=== PATIENT | female | born 1955 | race Caucasian/White ===

== ENCOUNTER → 2016-06-23 | Outpatient (CLI) | payer OTHER ==
[~2016-06-23] MED LIST: AMOX-358 PO; CITA40TA11 PO; HYDR-757 PO; LEVO88TA54 PO
--- NOTE | 2016-06-23 15:01 | Diagnostic Imaging Report ---
INDICATION: Cough and congestion. PA and lateral views of the chest are obtained with comparison made to study of 10/07/2015. FINDINGS: Heart size and pulmonary vascularity are within normal limits, and the lungs are clear, bilaterally. IMPRESSION: Unremarkable chest. Dictated by: Dictated on workstation # [id number]
== END ==
LOC: RAD 14:41
PROVIDERS: ATTEND Nurse Practitioner Family
DX: J44.9 Chronic obstructive pulmonary disease, unspecified (principal); R91.1 Solitary pulmonary nodule; F17.200 Nicotine dependence, unspecified, uncomplicated
CPT/HCPCS: 71020

== ENCOUNTER 2016-07-02 05:52 | Outpatient (CLI) | payer SELFPAY ==
[~2016-07-02] VITALS: Ht 167.6 cm; Wt 54.4 kg
== END 2016-07-02 14:45 ==
LOC: PREOP 05:52
PROVIDERS: ATTEND Surgery
DX: Z01.818 Encounter for other preprocedural examination (principal); Z12.11 Encounter for screening for malignant neoplasm of colon

== ENCOUNTER 2016-07-07 07:11 | Day surgery (SDC) | payer OTHER ==
[~2016-07-07] VITALS: Ht 167.6 cm; Wt 54.4 kg
[~2016-07-07 07:11] MED LIST changes: +MIDAZOLAM 2 MG/2 ML (VERSED) VIAL ONE; +NS IV 1000 ML 1,000 ML ONE; +PROPOFOL INJECTION 50 ML IV ONE
[2016-07-07] MEDS ORDERED: fentaNYL INJECTION 100 MCG/2 ML AMP ONE (07:29)
[2016-07-07] MEDS ORDERED: LACTATED RINGERS 1,000 ML IV PRN (07:37)
[2016-07-07] MEDS ORDERED: NS IV 1000 ML 1,000 ML IV STA (07:41)
[2016-07-07 07:44] VITALS: BP 103/70
[2016-07-07] MEDS ORDERED: fentaNYL INJECTION 100 MCG/2 ML AMP IVP PRN (07:45)
[2016-07-07] MEDS ORDERED: NALOXONE 0.4 MG/ML 1 ML (NARCAN) VIAL IVP PRN (07:45)
[2016-07-07] MEDS ORDERED: FLUMAZENIL (ROMAZICON) 0.1 MG/ML 5 ML VIAL INJ PRN (07:45)
[2016-07-07] MEDS ORDERED: fentaNYL INJECTION 100 MCG/2 ML AMP IV ONE (07:45)
--- NOTE | 2016-07-07 07:50 | Progress Note-Pre Operative ---
Pre-Operative Progress Note H&P Reviewed The H&P was reviewed, patient examined and no changes noted. Date H&P Reviewed: Jul 07, 2016 Time H&P Reviewed: 07:45 Pre-Operative Diagnosis: screening colonoscopy MILAGRO COX DO Jul 07, 2016 7:50 am
[2016-07-07] MEDS ORDERED: GLYCOPYRROLATE 0.2 MG/ML (ROBINUL) 2 ML VIAL ONE (07:53)
--- NOTE | 2016-07-07 08:19 | Progress Note-Post Operative ---
Post-Operative Progess Note Pre-Operative Diagnosis screening colonoscopy Post-Operative Diagnosis colon polys Post-Op Procedure Note Date of Procedure: Jul 07, 2016 Name of Procedure: colonoscopy c hot bx polypectomy x 4 Procedure Note/Findings see note Anesthesia Type per rn referral Estimated blood loss (mL): none Specimen(s) collected polyps cecal, sigmoid, rectumx 2 MILAGRO COX DO Jul 07, 2016 8:19 am
--- NOTE | 2016-07-07 08:20 | Discharge Inst-Simple/Standard ---
Discharge Inst-Standard Patient Instructions/Follow Up Plan of Care/Instructions/FU: 2 weeks Netta Activity as Tolerated: Yes Discharge Diet: Regular Diet MILAGRO COX DO Jul 07, 2016 8:20 am
[2016-07-07 08:35] VITALS: BP 91/71
[2016-07-07 09:30] VITALS: BP 85/64
[2016-07-07 10:00] VITALS: BP 85/64
--- NOTE | 2016-07-07 10:11 | OPERATIVE REPORT ---
PROCEDURE PHYSICIAN: MILAGRO COX DATE OF PROCEDURE: 07/07/2016 PREOPERATIVE DIAGNOSIS: Screening colonoscopy. POSTOPERATIVE DIAGNOSIS: Colon polyps PROCEDURE: Colonoscopy with hot biopsy polypectomy x 4 SURGEON: Netta. ANESTHESIA: Per [employer]. ESTIMATED BLOOD LOSS: None. COMPLICATIONS: None. INDICATIONS: The patient is a 61-year-old female who has not had screening colonoscopy. She understands risks and benefits of the procedure and wished to proceed with procedure. Consent signed on the chart. PROCEDURE: The patient was taken endoscopy suite, placed in left lateral recumbent position. Timeout was performed. Digital rectal exam was performed. There were no palpable polyps, masses, ulcerations. The scope was inserted in the rectum advanced all of the way to the cecum with minimal difficulty. At the rim of the cecum there is a small polyp, which hot biopsy polypectomy was performed. The scope was then slowly retracted back. Prep was adequate. The scope was then slowly retracted back. There are no polyps, masses or ulcerations within the ascending colon and transverse colon and descending colon. Within the sigmoid colon, a small polyp was present which hot biopsy polypectomy was performed. The scope was continued to be slowly back in the rectum, 2 small polyps were present, which hot biopsy polypectomy was performed. The scope was also retroflexed noting no further pathology. The scope was returned to its normal position slowly withdrawn until completely removed. The patient tolerated the procedure well without any complications. She was taken to recovery room in stable condition. RECOMMENDATIONS: The patient will need repeat colonoscopy in 3 to 5 years. If she has any problems prior to that, she should be reevaluated at that time. She will follow-up in the office in 2 weeks to discuss pathology results. Job ID: [id number] Dictated Date: 07/07/2016 08:27:23 Aquatics Instructor Date: 07/07/2016 10:05:23 / franky
== END 2016-07-07 09:35 | disposition home or self-care (01) ==
LOC: SDC 07:11
PROVIDERS: ATTEND Surgery
DX: Z12.11 Encounter for screening for malignant neoplasm of colon (principal); K63.5 Polyp of colon; J44.9 Chronic obstructive pulmonary disease, unspecified; F17.210 Nicotine dependence, cigarettes, uncomplicated; E03.9 Hypothyroidism, unspecified; F32.9 Major depressive disorder, single episode, unspecified; F41.9 Anxiety disorder, unspecified

== ENCOUNTER → 2016-10-20 | Outpatient (CLI) | payer OTHER ==
[~2016-10-20] MED LIST changes: -MIDAZOLAM 2 MG/2 ML (VERSED) VIAL ONE; -NS IV 1000 ML 1,000 ML ONE; -PROPOFOL INJECTION 50 ML IV ONE
--- NOTE | 2016-10-20 13:35 | Diagnostic Imaging Report ---
EXAMINATION: Left breast ultrasound. INDICATION: Followup left breast lesion at the 10 o'clock zone. FINDINGS: The 10 o'clock zone area and surrounding region were scanned in the left breast with no underlying abnormality seen. The previously seen lesion has resolved. IMPRESSION: The previously seen hypoechoic lesion at the 10 o'clock zone has resolved. No suspicious abnormality. Annual screening mammogram is recommended. ACR BI-RADS Category 1: Negative. Dictated by: Dictated on workstation # [id number]
== END ==
LOC: RAD 10:57
PROVIDERS: ATTEND Nurse Practitioner Family
DX: R92.8 Other abnormal and inconclusive findings on diagnostic imaging of breast (principal)
CPT/HCPCS: 76642

== ENCOUNTER → 2017-09-24 | Outpatient (CLI) | payer OTHER ==
--- NOTE | 2017-09-27 10:16 | Diagnostic Imaging Report ---
INDICATION: Routine screening. COMPARISON: 06/10/2016 and 07/21/2013. TECHNIQUE: Screening digital mammography was performed bilaterally with a Computer Aided Detection (CAD) system. FINDINGS: Both breasts are heterogeneously dense, limiting sensitivity of mammography. The previously noted density in the medial posterior left breast is stable. There are benign-appearing calcifications bilaterally. Benign-appearing nodular densities are identified bilaterally. No spiculated mass or malignant appearing microcalcifications are seen. The axillae are unremarkable. IMPRESSION: No mammographic features suspicious for malignancy are identified. ACR BI-RADS Category 2: Benign findings. Result letter will be mailed to the patient. Note: At least 10% of breast cancer is not imaged by mammography. Dictated by: Dictated on workstation # [id number]
== END ==
LOC: RAD 12:16
PROVIDERS: ATTEND Physician Assistant
DX: Z12.31 Encounter for screening mammogram for malignant neoplasm of breast (principal)
CPT/HCPCS: 77067

== ENCOUNTER → 2017-09-24 | Outpatient (CLI) | payer SELFPAY ==
--- NOTE | 2017-09-24 17:01 | Diagnostic Imaging Report ---
INDICATION: 42 pack year history of smoking. COMPARISON: 09/28/2015 TECHNIQUE: Routine noncontrast low-dose CT of the chest was performed. FINDINGS: Evaluation of the lung willett demonstrates collection of groundglass densities within the left upper lobe measuring approximately 7 mm (images 146 through 156, series 4). These are new when compared to prior exam. Solid 5 mm micronodule is also noted within the lateral segment of the right middle lobe (image 204, series 4). This is stable compared to 09/28/2015. There is moderate diffuse air trapping consistent with background of emphysematous disease. No focal consolidation, pleural effusion, nor pneumothorax is seen on either side. Cardiomediastinal structures show normal heart size. There is no large pericardial effusion. Mild hiatal hernia is noted. There is mild to moderate calcified coronary atherosclerosis. There is also some mild scattered calcified aortic atherosclerosis. A few subcentimeter mediastinal lymph nodes are noted. No pathologically enlarged mediastinal, hilar, nor axillary adenopathy is identified. Bony structures show no acute abnormalities. No lytic or blastic bony lesions are identified. Included portions of the upper abdomen are unremarkable. IMPRESSION: 1. Interval development of ill-defined groundglass micronodular densities within the left upper lobe as described above. 2. Stable 5 mm micronodule within the right middle lobe. 3. Mild to moderate calcified coronary atherosclerosis. 4. Moderate emphysematous disease. LungRads category: 4A-S RECOMMENDATIONS: Three-month followup is recommended. MODIFIERS: Emphysematous disease and calcified coronary atherosclerosis. Dictated by: Dictated on workstation # [id number]
== END ==
LOC: RAD 12:23
PROVIDERS: ATTEND Physician Assistant
DX: I25.10 Atherosclerotic heart disease of native coronary artery without angina pectoris (principal); R91.8 Other nonspecific abnormal finding of lung field; J43.9 Emphysema, unspecified; F17.210 Nicotine dependence, cigarettes, uncomplicated

== ENCOUNTER → 2019-11-22 | Outpatient (CLI) | payer MEDICARE, MEDICAID ==
[~2019-11-22] MED LIST changes: +HYDR-4226 PO; -HYDR-757 PO
--- NOTE | 2019-11-22 14:45 | Diagnostic Imaging Report ---
INDICATION: Low back pain increasing over the last 2 months. TIME OF EXAM: 2:29 PM. TECHNIQUE: Frontal and lateral views of the lumbar spine were obtained. FINDINGS: There is an S-shaped scoliotic curvature to the lumbar spine, convex to the left in the upper portion and convex to the right in the lower portion. The vertebral body heights appear to be maintained. No acute compression fracture is seen. There is generalized degenerative disc and facet disease. Variable disc space narrowing is noted. The aorta is partially calcified. IMPRESSION: Lumbar spondylosis and scoliosis. No acute bony abnormality is detected. Dictated by: Dictated on workstation # [id number]
--- NOTE | 2019-11-22 14:51 | Diagnostic Imaging Report ---
INDICATION: Bilateral hip pain and popping. TIME OF EXAM: 02:25 p.m. EXAMINATION: Frontal view of the pelvis as well as multiple views of bilateral hips were obtained. FINDINGS: A femoral acetabular alignment is normal bilaterally. Hip joint spaces are fairly well maintained. Femoral heads and necks are intact. No fractures are seen. Rami are unremarkable. IMPRESSION: No acute bony abnormality is detected. Dictated by: Dictated on workstation # [id number]
== END ==
LOC: RAD FS 14:13
PROVIDERS: ATTEND Nurse Practitioner Family
DX: M47.816 Spondylosis without myelopathy or radiculopathy, lumbar region (principal); M41.86 Other forms of scoliosis, lumbar region; M25.551 Pain in right hip; M25.552 Pain in left hip
CPT/HCPCS: 72100; 73521

== ENCOUNTER → 2019-12-18 | Outpatient (CLI) | payer MEDICARE, MEDICAID ==
--- NOTE | 2019-12-18 18:20 | Diagnostic Imaging Report ---
CT Lung Screening INDICATION: Screening for lung cancer, 43 pack year history of smoking, quit smoking 8 months prior. TECHNIQUE: Noncontrast, low-dose CT imaging performed according to the lung cancer screening protocol. Auto Exposure Controls were utilize during the CT exam to meet ALARA standards for radiation dose reduction. COMPARISON: 09/24/2017 and 09/28/2015 FINDINGS: No significant adenopathy within the chest. Mild scattered vascular calcifications. No aneurysmal dilatation of the thoracic aorta. The heart is within normal limits in size. No significant pericardial effusion. No pleural effusion. Severe background emphysematous changes are again noted, particularly centrilobular in nature with an upper lobe predilection. Biapical pleural parenchymal scarring. Previously noted left upper lobe groundglass opacities have resolved since the prior examination. No new left-sided pulmonary nodules. There is a 2 mm right lower lobe pulmonary nodule, unchanged and benign. A 5 mm right middle lobe pulmonary nodule is again identified and stable, therefore, benign. No new pulmonary nodule or opacity. The trachea is patent. A 3.5 x 3.0 cm hypodensity within the portacaval location is again identified, not significantly changed since 2016. The visualized upper abdomen is otherwise unremarkable. Mild apex right curvature of the spine. Scattered osseous degenerative changes without acute osseous abnormality. IMPRESSION: 1. Advanced background emphysematous changes without suspicious pulmonary nodules. 2. Subcentimeter bilateral pulmonary nodules are again identified and stable, therefore, benign. 3. Additional stable findings, as above. LUNG-RADS CATEGORY:2S: Benign appearance or behavior. MODIFIER:S: Advanced background emphysematous changes. FOLLOW-UP: Continued annual low-dose CT of the chest in 12 months. Dictated by: Dictated on workstation # [id number]
== END ==
LOC: RAD 16:02
PROVIDERS: ATTEND Nurse Practitioner Family
DX: J43.9 Emphysema, unspecified (principal); R91.8 Other nonspecific abnormal finding of lung field; Z87.891 Personal history of nicotine dependence

== ENCOUNTER → 2020-02-09 | Outpatient (CLI) | payer MEDICARE, MEDICAID ==
--- NOTE | 2020-02-09 14:55 | Diagnostic Imaging Report ---
PROCEDURE: MRI lumbar spine. TECHNIQUE: Multiplanar, multisequence MRI of the lumbar spine was performed without contrast. INDICATION: Lower back pain. COMPARISON: None FINDINGS: For the purposes of this exam, last well-formed disc space is noted at the L5-S1 level. Evaluation of static alignment shows moderate levoscoliotic deformity at the thoracolumbar junction. AP static alignment is maintained. There is no significant anteroretrolisthesis. There is no evidence of jumped facets. Vertebral body heights are maintained. There is no acute fracture. Evaluation marrow signal demonstrates scattered Modic type I change involving the adjacent endplates of L1-L2 on the right and L4-L5 on the left. There is also mild multilevel intervertebral disc height loss. Visualized portions of distal cord are unremarkable. Conus terminates at approximately the L1-L2 level. No abnormal intrathecal filling defects are seen. Pre and paravertebral soft tissue structures are unremarkable. Axial images demonstrate the following: T12-L1: There is slight broad-based posterior disc bulge, but this results in only minimal narrowing of the spinal canal. Neural foramen are unremarkable. L1-L2: There is mild broad-based posterior disc bulge, eccentric to the right as well as mild bilateral ligamentum flavum laxity and facet arthropathy. As a result, there is moderate stenosis of the right neuroforamen and mild narrowing of the spinal canal. Left neuroforamen is unremarkable L2-L3: There is mild broad-based posterior disc bulge and bilateral ligamentum flavum laxity and facet arthropathy. As result, there is minimal narrowing of the spinal canal and bilateral neural foramen. L3-L4: There is no large disc bulge or focal protrusion. There is no significant spinal canal or neuroforaminal stenosis. L4-L5: There is asymmetric left lateral endplate osteophyte formation. This results in asymmetric stenosis of the left lateral recess and asymmetric moderate narrowing of the left neural foramen. Spinal canal and right neuroforamen are unremarkable. L5-S1: There are small bilateral lateral endplate osteophyte formations. This results in mild narrowing of bilateral neural foramen. There is no significant spinal canal stenosis. IMPRESSION: 1. 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 2. No acute fracture or dislocation. Dictated by: Dictated on workstation # [id number]
== END ==
LOC: RAD 14:00
PROVIDERS: ATTEND Physician Assistant
DX: M25.78 Osteophyte, vertebrae (principal); M48.07 Spinal stenosis, lumbosacral region; M47.816 Spondylosis without myelopathy or radiculopathy, lumbar region; M51.26 Other intervertebral disc displacement, lumbar region; M51.25 Other intervertebral disc displacement, thoracolumbar region; M51.36 Other intervertebral disc degeneration, lumbar region; M41.86 Other forms of scoliosis, lumbar region
CPT/HCPCS: 72148

== ENCOUNTER → 2021-01-15 | Outpatient (CLI) | payer MEDICARE, MEDICAID ==
--- NOTE | 2021-01-15 16:56 | Diagnostic Imaging Report ---
INDICATION: Cough PA and lateral chest obtained at 4:52 p.m. and compared to 06/23/2016. Heart and mediastinal silhouette are normal in appearance. There is hyperinflation compatible with COPD. There is some mild patchy infiltrate in the right lung base, early pneumonia not excluded. IMPRESSION: COPD changes and chronic interstitial prominence. Minimal infiltrate in right lung base, early pneumonia not excluded. Suggest followup as clinically warranted. Dictated by: Dictated on workstation # [id number]
== END ==
LOC: RAD FS 16:38
PROVIDERS: ATTEND Nurse Practitioner Family
DX: J44.9 Chronic obstructive pulmonary disease, unspecified (principal)
CPT/HCPCS: 71046

== ENCOUNTER 2021-01-22 14:09 | Emergency (ER) | payer MEDICARE, MEDICAID ==
[~2021-01-22] VITALS: Ht 170 cm; Wt 46.0 kg
[2021-01-22] MEDS ORDERED: ONDANSETRON 4 MG/2 ML (SDV) Z0FRAN IVP STA (14:25)
[2021-01-22] MEDS ORDERED: NS IV 1000 ML 1,000 ML IV STA (14:25)
--- NOTE | 2021-01-22 14:33 | ED General ---
General Chief Complaint: General Problems/Pain Stated Complaint: GENERAL WEAKNESS Source of Information: Patient History of Present Illness Date Seen by Provider: Jan 22, 2021 Time Seen by Provider: 14:11 Initial Comments 65-year-old female with a history of COPD presents pneumonia. She states that she finished her antibiotics yesterday. She was checking back with Anu Duggan today and was sent to the ER because of general weakness. She has been complaints of not feeling well, generally weak, continued cough and shortness of breath, nausea but no vomiting. She denies any pain. She has had no diarrhea o r change in bowels. She denies having a fever. She has not been having any burning or pain with urination. She states that she is bringing up a little bit of phlegm with cough but no more than usual. She reports being tested for Covid and having it be negative last week when evaluated for pneumonia. She is a former smoker but does nto smoke now. Associated Systoms: No Chest Pain; Cough; No Diaphoresis, No Fever/Chills; Loss of Appetite, Malaise, Nausea/Vomiting (nausea but no vomiting); No Seizure; Shortness of Air; No Syncope; Weakness (general) Allergies and Home Medications Allergies Coded Allergies: codeine (Verified Allergy, Unknown, 07/02/16) Home Medications Citalopram Hydrobromide 40 Mg Tablet, 1 TAB PO DAILY, (Reported) Levothyroxine Sodium 88 Mcg Tablet, 1 TAB PO DAILY, (Reported) Patient Home Medication List Home Medication List Reviewed: Yes Review of Systems Review of Systems Constitutional: see HPI EENTM: no symptoms reported Respiratory: see HPI Cardiovascular: no symptoms reported Gastrointestinal: see HPI Genitourinary: no symptoms reported Musculoskeletal: no symptoms reported Skin: No rash Psychiatric/Neurological: Anxiety Past Ksanozo-Ioyiol-Kwedly Hx Immunizations Up To Date Tetanus Booster (TDap): Unknown Seasonal Allergies Seasonal Allergies: Yes Past Medical History Surgeries: Yes Gallbladder, Hysterectomy, Tubal Ligation Respiratory: Yes COPD Reproductive Disorders: No Female Reproductive Disorders: Denies [employer] History: Hysterectomy Sexually Transmitted Disease: No HIV/AIDS: No Gastrointestinal: Yes Chronic Constipation, Chronic Diarrhea Musculoskeletal: Yes Chronic Back Pain Endocrine: Yes Hypothyroidsim Loss of Vision: Bilateral Hearing Impairment: Denies Anxiety, Depression Adverse Reaction/Blood Tranf: No Physical Exam Vital Signs Vital Signs - First Documented 01/22/21 14:12 Temp 36.1 Pulse 97 Resp 20 B/P (MAP) 138/96 (110) Pulse Ox 96 O2 Delivery Room Air Capillary Refill : Height, Weight, BMI Height: 5'6.00" Weight: 120lbs. 0.0oz. 54.623387fv; 19.4 BMI Method:Stated General Appearance: Chronically ill, Thin HEENT: PERRL/EOMI Neck: Full Range of Motion, Normal Inspection, Non Tender, Supple Respiratory: Chest Non Tender, Lungs Clear, No Accessory Muscle Use, No Respiratory Distress, Decreased Breath Sounds Cardiovascular: Regular Rate, Rhythm, Normal Peripheral Pulses Gastrointestinal: Normal Bowel Sounds, No Pulsatile Mass, Non Tender, Soft Rectal: Deferred Extremity: Normal Capillary Refill, Normal Inspection, No Pedal Edema Neurologic/Psychiatric: Alert, Oriented x3, field gauger II-XII Norm as Tested Skin: Normal Color, Warm/Dry Progress/Results/Core Measures Suspected Sepsis SIRS Temperature: Pulse: Respiratory Rate: Laboratory Tests 01/22/21 14:18: White Blood Count 6.6 Blood Pressure / Mean: Laboratory Tests 01/22/21 14:18: Creatinine 0.69, Platelet Count 207, Total Bilirubin 0.4 Results/Orders Lab Results Laboratory Tests Test 01/22/21 14:15 01/22/21 14:18 Range/Units Urine Color YELLOW Urine Clarity CLEAR Urine pH 5.5 5-9 Urine Specific Miller 1.025 H 1.016-1.022 Urine Protein NEGATIVE NEGATIVE Urine Glucose (UA) NEGATIVE NEGATIVE Urine Ketones NEGATIVE NEGATIVE Urine Nitrite NEGATIVE NEGATIVE Urine Bilirubin NEGATIVE NEGATIVE Urine Urobilinogen 0.2 < = 1.0 MG/DL Urine Leukocyte Esterase NEGATIVE NEGATIVE Urine RBC (Auto) NEGATIVE NEGATIVE Urine RBC NONE /HPF Urine WBC 0-2 /HPF Urine Squamous Epithelial Cells 2-5 /HPF Urine Crystals NONE /LPF Urine Bacteria TRACE /HPF Urine Casts NONE /LPF Urine Mucus SMALL H /LPF Urine Culture Indicated YES White Blood Count 6.6 4.3-11.0 10^3/uL Red Blood Count 5.72 4.35-5.85 10^6/uL Hemoglobin 16.2 H 11.5-16.0 G/DL Hematocrit 50 35-52 % Mean Corpuscular Volume 87 80-99 FL Mean Corpuscular Hemoglobin 28 25-34 PG Mean Corpuscular Hemoglobin Concent 33 32-36 G/DL Red Cell Distribution Width 14.0 10.0-14.5 % Platelet Count 207 130-400 10^3/uL Mean Platelet Volume 11.8 H 7.4-10.4 FL Immature Granulocyte % (Auto) 2 % Neutrophils (%) (Auto) 59 42-75 % Lymphocytes (%) (Auto) 24 12-44 % Monocytes (%) (Auto) 15 H 0-12 % Eosinophils (%) (Auto) 0 0-10 % Basophils (%) (Auto) 1 0-10 % Neutrophils # (Auto) 3.9 1.8-7.8 X 10^3 Lymphocytes # (Auto) 1.6 1.0-4.0 X 10^3 Monocytes # (Auto) 1.0 0.0-1.0 X 10^3 Eosinophils # (Auto) 0.0 0.0-0.3 10^3/uL Basophils # (Auto) 0.0 0.0-0.1 10^3/uL Immature Granulocyte # (Auto) 0.1 0.0-0.1 10^3/uL Sodium Level 144 135-145 MMOL/L Potassium Level 3.7 3.6-5.0 MMOL/L Chloride Level 106 98-107 MMOL/L Carbon Dioxide Level 25 21-32 MMOL/L Anion Gap 13 5-14 MMOL/L Blood Urea Nitrogen 28 H 7-18 MG/DL Creatinine 0.69 0.60-1.30 MG/DL Estimat Glomerular Filtration Rate 86 BUN/Creatinine Ratio 41 Glucose Level 128 H 70-105 MG/DL Calcium Level 9.5 8.5-10.1 MG/DL Corrected Calcium 9.8 8.5-10.1 MG/DL Total Bilirubin 0.4 0.1-1.0 MG/DL Aspartate Amino Transf (AST/SGOT) 21 5-34 U/L Alanine Aminotransferase (ALT/SGPT) 20 0-55 U/L Alkaline Phosphatase 96 40-136 U/L Troponin I < 0.30 <0.30 NG/ML Pro-B-Type Natriuretic Peptide 123.9 H <75.0 PG/ML Total Protein 6.9 6.4-8.2 GM/DL Albumin 3.6 3.2-4.5 GM/DL My Orders Orders - PADMINI WEN MD Comprehensive Metabolic Panel (01/22/21 14:15) Ua Culture If Indicated (01/22/21 14:15) Ed Iv/Invasive Line Start (01/22/21 14:15) Cbc With Automated Diff (01/22/21 14:15) Ekg Tracing (01/22/21 14:24) Monitor-Rhythm Ecg Trace Only (01/22/21 14:24) Troponin I Fs (01/22/21 14:24) Probnp Fs (01/22/21 14:24) Sputum Culture (01/22/21 14:24) Ns Iv 1000 Ml (Sodium Chloride 0.9%) (01/22/21 14:25) Ondansetron Injection (Zofran Injectio (01/22/21 14:25) Chest Pa/Lat (2 View) (01/22/21 14:26) Urine Culture (01/22/21 14:15) Vital Signs/I&O 01/22/21 01/22/21 14:12 15:42 Temp 36.1 36.1 Pulse 97 82 Resp 20 16 B/P (MAP) 138/96 (110) 129/82 (110) Pulse Ox 96 96 O2 Delivery Room Air Room Air Capillary Refill : Progress Note #1: Progress Note With vague complaints and having COPD and recent pneumonia will check 2 view CXR, labs, cardiac enzymes, UA. Give IVF for hydration, Zofran for nausea. Progress Note #2: Progress Note Labs are stable without signs of acute significant normality. She does have an elevated specific gravity on urinalysis indicates some dehydration. Her chest x-ray is showing improving signs of pneumonia. Her last film was done on January 15 so it has only been a few days. Encourage fluids and hydration. Check with clinic for continued concerns and return or seek medical care for worsening symptoms. ECG Initial ECG Impression Date: Jan 22, 2021 Initial ECG Impression Time: 14:25 Initial ECG Rate: 85 Initial ECG Rhythm: Normal Sinus Initial ECG Comparisson: No Previous ECG Available Comment Normal sinus rhythm with a heart rate of 85 bpm. ID interval [address] elevation. QT interval 380 ms with a QTc interval 452 ms. No prior tracing immediately available for comparison. Diagnostic Imaging Diagonstic Imaging: Xray Plain Films/CT/US/NM/MRI: chest Comments [facility] [place], [place] NAME: MARY CARMEN GOMEZ [facility] REC#: [id number] PT STATUS: REG ER : 1955 PHYSICIAN: PADMINI WEN MD ADMIT DATE: 01/22/21/ER FS Signed Date of Exam:01/22/21 CHEST PA/LAT (2 VIEW) INDICATION: Cough and weakness. TIME OF EXAM: 2:58 PM. COMPARISON: Correlation is made with the prior chest from 01/15/2021. FINDINGS: The heart size is normal. The lungs are hyperinflated, consistent with COPD. Minimal infiltrate in the right base does show some improvement. The left lung is clear. There is no effusion or pneumothorax. IMPRESSION: Partial clearing of the patchy right basilar infiltrate when compared with the examination from 01/15/2021. Dictated by: Dictated on workstation # [id number] Dict: 01/22/21 1523 Trans: 01/22/21 1555 [id number] Interpreted by: LAINA QUEZADA MD Electronically signed by: LAINA QUEZADA MD 01/22/21 1555 Reviewed: Reviewed by Me Departure Impression Primary Impression: Generalized weakness Additional Impressions: History of recent pneumonia COPD (chronic obstructive pulmonary disease) Qualified Codes: J44.9 - Chronic obstructive pulmonary disease, unspecified Dehydration Disposition: 01 HOME, SELF-CARE Condition: Stable Departure-Patient Inst. Decision time for Depature: 16:13 Referrals: ANU DUGGAN APRN (PCP) Primary Care Physician [facility] (Family) Primary Care Physician Patient Instructions: Fatigue ED, Weakness ED, Dehydration, Adult ED, COPD Diet Add. Discharge Instructions: Your tests show that the pneumonia is clearing up but it takes a while for your strength and energy to build back up. Keep pushing fluids and stay well hydrated. Try to make sure you are getting plenty of rest. If you have return of fever over 101 F, worsening cough with bringing up sputum, or more trouble breathing then get rechecked. Otherwise check back with clinic if not improving All discharge instructions reviewed with patient and/or family. Voiced understanding. PADMINI WEN MD Jan 22, 2021 14:33
[2021-01-22 14:37] LABS: WHITE BLOOD COUNT 6.6 10^3/uL (4.3-11.0)
[2021-01-22 14:38] LABS: BASOPHILS % (AUTO) 1 % (0-10); EOSINOPHILS % (AUTO) 0 % (0-10); HEMATOCRIT 50 % (35-52); HEMOGLOBIN 16.2 G/DL (11.5-16.0); LYMPHOCYTES # (AUTO) 1.6 X 10^3 (1.0-4.0); LYMPHOCYTES % (AUTO) 24 % (12-44); MEAN CORPUSCULAR HEMOGLOBIN 28 PG (25-34); MEAN CORPUSCULAR HGB CONC 33 G/DL (32-36); MEAN CORPUSCULAR VOLUME 87 FL (80-99); MEAN PLATELET VOLUME 11.8 FL (7.4-10.4); MONOCYTES % (AUTO) 15 % (0-12); NEUTROPHILS # (AUTO) 3.9 X 10^3 (1.8-7.8); NEUTROPHILS % (AUTO) 59 % (42-75); PLATELET COUNT 207 10^3/uL (130-400)
[2021-01-22 14:57] LABS: BILIRUBIN,URINE NEGATIVE (NEGATIVE); CLARITY,URINE CLEAR; COLOR,URINE YELLOW; GLUCOSE, URINE (UA) NEGATIVE (NEGATIVE); KETONES,URINE NEGATIVE (NEGATIVE); LEUKOCYTE ESTERASE ,URINE NEGATIVE (NEGATIVE); NITRITE,URINE NEGATIVE (NEGATIVE); PH,URINE 5.5 (5-9); PROTEIN,URINE NEGATIVE (NEGATIVE)
[2021-01-22 14:58] LABS: BACTERIA,URINE TRACE /HPF; WBC,URINE 0-2 /HPF
[2021-01-22 15:11] LABS: POTASSIUM 3.7 MMOL/L (3.6-5.0)
[2021-01-22 15:12] LABS: ALBUMIN 3.6 GM/DL (3.2-4.5); BILIRUBIN,TOTAL 0.4 MG/DL (0.1-1.0); CALCIUM 9.5 MG/DL (8.5-10.1); CREATININE SERUM 0.69 MG/DL (0.60-1.30); TOTAL PROTEIN 6.9 GM/DL (6.4-8.2)
--- NOTE | 2021-01-22 15:26 | Diagnostic Imaging Report ---
INDICATION: Cough and weakness. TIME OF EXAM: 2:58 PM. COMPARISON: Correlation is made with the prior chest from 01/15/2021. FINDINGS: The heart size is normal. The lungs are hyperinflated, consistent with COPD. Minimal infiltrate in the right base does show some improvement. The left lung is clear. There is no effusion or pneumothorax. IMPRESSION: Partial clearing of the patchy right basilar infiltrate when compared with the examination from 01/15/2021. Dictated by: Dictated on workstation # [id number]
[2021-01-22 15:42] VITALS: BP 129/82
== END 2021-01-22 16:16 | disposition home or self-care (01) ==
LOC: EDUNIT# 14:09 → ER FS 14:12
DX: R53.1 Weakness (principal); J44.9 Chronic obstructive pulmonary disease, unspecified; E86.0 Dehydration; E03.9 Hypothyroidism, unspecified; F41.9 Anxiety disorder, unspecified; F32.9 Major depressive disorder, single episode, unspecified; Z79.890 Hormone replacement therapy; Z79.899 Other long term (current) drug therapy
CPT/HCPCS: 36415; 71046; 80053; 81000; 83880; 84484; 85025; 87070; 87088; 87205; 93005; 93041; 96374

== ENCOUNTER → 2021-11-03 | Outpatient (CLI) | payer MEDICARE, MEDICAID ==
[~2021-11-03] MED LIST changes: -CITA40TA11 PO; +CITA40TA13 PO
--- NOTE | 2021-11-03 15:16 | Diagnostic Imaging Report ---
EXAMINATION: CT Lung Screening. INDICATION: [id number] smoking history. TECHNIQUE: Noncontrast, low-dose CT imaging performed according to the lung cancer screening protocol. Auto Exposure Controls were utilized during the CT exam to meet ALARA standards for radiation dose reduction. COMPARISON: 12/18/2019. FINDINGS: Seen best on coronal images series 602, images 33 through 39, is a juxtapleural sub-solid curvilinear and somewhat discoid zone of the interstitial and airspace opacity favored to be on an atelectatic and/or infectious basis. Three adjacent peribronchial nodules in the right middle lobe seen best on axial image 99 are unchanged from comparison measuring 5 mm maximal. No new soft tissue density lung mass. No findings felt suggestive of lung cancer, and centrilobular emphysematous changes most severe in the pulmonary apices appeared symmetric and have at least mildly increased in the interim with symmetrical air trapping. No effusion. No pneumothorax. No endobronchial filling defect. No thoracic adenopathy or effusion. No acute chest wall pathology. The visualized upper abdomen is nonacute. IMPRESSION: No findings suggestive of lung cancer. Continued annual low-dose CT screening follow-up in one year's time recommended. LUNG-RADS CATEGORY: 2. MODIFIER: None. OTHER SIGNIFICANT FINDINGS: New vertically oriented discoid morphology subpleural opacity in the right upper lobe, atelectatic and/or inflammatory. Chronic centrilobular emphysema showed progression. Some benign subcentimeter right middle lobe peribronchial nodules, long-term stable. Dictated by: Dictated on workstation # [id number]
== END ==
LOC: RAD 11:15
PROVIDERS: ATTEND Nurse Practitioner Family
DX: Z12.2 Encounter for screening for malignant neoplasm of respiratory organs (principal); F17.210 Nicotine dependence, cigarettes, uncomplicated
CPT/HCPCS: 71271

== ENCOUNTER → 2022-08-07 | Outpatient (CLI) | payer MEDICARE, MEDICAID ==
--- NOTE | 2022-08-07 15:25 | Diagnostic Imaging Report ---
INDICATION: Shortness of breath. PA and lateral chest obtained at 11:14 a.m. and compared to 01/22/2021. FINDINGS: Heart is normal in size. There is hyperinflation compatible with COPD. There is central vascular congestion with chronic appearing increased interstitial markings. There is a trace of pleural fluid on both sides. IMPRESSION: COPD changes with central vascular congestion and chronic appearing increased interstitial markings. Trace bilateral pleural effusions. No sona consolidation. Dictated by: Dictated on workstation # [id number]
== END ==
LOC: RAD FS 10:59
PROVIDERS: ATTEND Nurse Practitioner Family
DX: J44.9 Chronic obstructive pulmonary disease, unspecified (principal); J90 Pleural effusion, not elsewhere classified
CPT/HCPCS: 71046